=== PATIENT | female | born 1980 | race Caucasian/White ===

== ENCOUNTER → 2017-07-17 | Emergency (ER) | payer OTHER ==
[~2017-07-17] VITALS: Ht 157.5 cm; Wt 49.9 kg
[~2017-07-17] MED LIST: CATAFLAM50 MG PO; IBUPROFEN800 MG PO; NORFLEX100 MG PO; SEPTRA DS TABLE1 TAB PO
== END | disposition home or self-care (01) ==
LOC: ER 16:33
DX: K52.9 Noninfective gastroenteritis and colitis, unspecified (principal); R10.84 Generalized abdominal pain; E86.0 Dehydration

== ENCOUNTER 2018-06-29 13:06 | Outpatient (CLI) | payer OTHER | END 2018-06-29 13:34 | disposition home or self-care (01) | LOC: SONOGRAMA 13:06 | DX: R10.2 Pelvic and perineal pain (principal); N39.0 Urinary tract infection, site not specified ==

== ENCOUNTER → 2018-07-11 | Outpatient (CLI) | payer OTHER | END | disposition home or self-care (01) | LOC: MAMO-SONO 07-01 08:15 → SONOGRAMA 09:31 | DX: R10.2 Pelvic and perineal pain (principal); N39.0 Urinary tract infection, site not specified ==

== ENCOUNTER 2022-12-08 08:24 | Outpatient (CLI) | payer OTHER | END 2022-12-08 08:33 | disposition home or self-care (01) | LOC: RX STUDY 08:24 | PROVIDERS: ATTEND Colon & Rectal Surgery | DX: K56.50 Intestinal adhesions [bands], unspecified as to partial versus complete obstruction (principal) ==